=== PATIENT | female | born 1970 | race Caucasian/White ===

== ENCOUNTER 2017-04-19 02:17 | Inpatient (IN) | payer OTHER, SELFPAY ==
[2017-04-19 02:41] LABS: #Basophils 0.1 thou/uL (0.0-0.2); #Eosinphils 0.5 thou/uL (0.0-0.7); #Lymphocytes 1.7 thou/uL (1.20-3.40); #Monocytes 0.9 thou/uL (0.11-0.59); #Neutrophils 8.8 thou/uL (1.40-6.50); %Basophils 0.5 % (0.0-1.0); %Eosinophils 4.5 % (0.0-10.0); %Lymphocytes 14.5 % (21.0-51.0); %Monocytes 7.7 % (0.0-10.0); %Neutrophils 72.8 % (42.0-75.0); Hemoglobin 11.6 g/dL (12.0-16.0); Mean Corpuscular HGB CONC 32.7 g/dL (32.0-36.0); Mean Corpuscular Hemoglobin 30.1 pg (27.0-31.0); Mean Corpuscular Volume 92.1 fl (81.0-99.0); Mean Platelet Volume 7.2 fL (7.4-10.4); Platelet Count 349 thou/uL (130-400); RBC Distribution Width 12.4 % (11.5-14.5); Red Blood Cell (RBC) Count 3.87 mill/uL (4.20-5.40)
[2017-04-19 03:17] LABS: Bilirubin Negative (Negative); Blood, Urine Negative (Negative); Clarity CLEAR (Clear); Glucose, Urine (Dipstick) Negative (Negative); Leukocyte Negative (Negative); Nitrite Negative (Negative); Protein, Urine (Dipstick) Negative (Neg-Trace); Urobilinogen 0.2 mg/dL (0.2-1.0); pH, Urine 6.5 (5.0-9.0)
[2017-04-19 03:25] LABS: ALT (SGPT) 16 U/L (8-55); AST (SGOT) 15 U/L (5-34); Albumin 4.3 g/dL (3.5-5.0); Alkaline Phosphatase 70 U/L (40-150); Anion Gap 11 mmol/L (10-20); BUN (Urea Nitrogen) 11 mg/dL (7.0-18.7); Bilirubin, Total 0.8 mg/dL (0.2-1.2); Calc. Creatinine Clearance 0 mL/min (70-130); Calcium 9.7 mg/dL (7.8-10.44); Carbon Dioxide 28 mmol/L (22-29); Chloride 103 mmol/L (98-107); Estimated GFR-MDRD 76; Globulin 2.7 g/dL (2.4-3.5); Glucose 109 mg/dL (70-105); Potassium 4.2 mmol/L (3.5-5.1); Sodium 138 mmol/L (136-145)
[2017-04-19 03:30] LABS: Pregnancy Test - Urine (BHCG) Negative (Negative); Pregu Control Background? CLEAR/WHITE (CLR/WHITE); Pregu Control Bar Appear? YES (CONTROL BAR)
[2017-04-19] MEDS ORDERED: Ondansetron HCl/PF 4 MG/2 ML Vial ONE ×2 (03:35→15:55)
[2017-04-19] MEDS ORDERED: Piperacillin/Tazobactam 3.375 GM in Sodium Chloride 0.9% 100 ML IVPB SCH ×2 (04:15→11:00)
[2017-04-19] MEDS ORDERED: Ondansetron HCl/PF 4 MG/2 ML Vial IVP PRN ×2 (05:19→09:22)
[2017-04-19] MEDS ORDERED: Ondansetron ODT 4 MG TAB SL PRN (05:19)
[2017-04-19] MEDS ORDERED: Dextrose 5 % And 0.9 % NaCl 1,000 ML IV SCH (05:30)
[2017-04-19] MEDS ORDERED: Bupivacaine 0.25% HCL 30 ML VIAL ONE ×2 (06:46→06:48)
[2017-04-19] MEDS ORDERED: Bupivacaine PF 0.5% 30 ML VIAL ONE ×2 (06:46→06:48)
[2017-04-19] MEDS ORDERED: Lidocaine 2% w/Epinephrine 1:200K 20 ML VIAL ONE (06:52)
[2017-04-19] MEDS ORDERED: HYDROmorphone 0.5 MG/0.5 ML SYRINGE ONE (06:56)
[2017-04-19] MEDS ORDERED: Fentanyl 100 MCG/2 ML VIAL ONE (06:56)
[2017-04-19] MEDS ORDERED: Ketorolac Tromethamine 30 MG/ML VIAL ONE (07:21)
[2017-04-19] MEDS ORDERED: Scopolamine 1.5 mg/72 hour Patch ONE (07:21)
--- NOTE | 2017-04-19 07:59 | HP ---
HISTORY OF PRESENT ILLNESS: A 47-year-old female, from [place], presents with a 1-month to 6- week intermittent abdominal pain episodes. This is initially in her right lower quadrant and at in h er central abdomen. She presents to the emergency room, as it became more severe. Her white count i s 12 and hemoglobin 11.6. Comprehensive metabolic profile normal. Lipase 220. She underwent a CAT scan of the abdomen and pelvis revealing a normal appendix, Meckel's diverticulitis findings, and a q uestionable cervical mass 7.8 x 4.2 cm. She is followed by Dr. Dickson Jones and up-to-date on her Pap smears having had one last year. She had an upper and lower endoscopy last year for peptic ulcer dis ease and been on PPIs. Gallbladder is normal. The patient has had a cough with some interscapular p ain, episodically possibly related to her cough. Of note is that she did have an abdominal ultrasoun d 02/21/2016 revealing normal gallbladder with normal bile duct and negative sonographic Mccarty's. S he was having epigastric pain at that time. PAST SURGICAL HISTORY: 02/22/2016, Dr. Faulkner performed EGD noting erosive gastritis, normal esophagog astroduodenoscopy otherwise. PPIs recommended. 03/22/2016, colonoscopy, Dr. Faulkner, internal hemorrho ids, normal colonoscopy otherwise to the terminal ileum. 07/31/2014, Pap smear negative, bilateral t ubal ligation. ALLERGIES: None. TOBACCO: None. ALCOHOL: Rarely. MEDICATIONS: Ambien 10 mg daily, Zoloft 50 mg a day, propranolol at bedtime 80 mg. PAST MEDICAL HISTORY: Migraines and mild depression. The patient is followed by Dr. Jones from a [employer] standpoint and reports she is up-to-date on her visits. REVIEW OF SYSTEMS: Ten-point noncontributory. PHYSICAL EXAMINATION: VITAL SIGNS: 65 kilograms, 98.1, 69, 14, 99, 118/68. HEAD, EYES, EARS, NOSE, AND THROAT: Unremarkable. LUNGS: Clear to auscultation. CARDIAC: Regular rate and rhythm without murmur, rub, or gallop. ABDOMEN: Soft. Mild tenderness, central abdomen, umbilical area, mild guarding, no rebound. EXTREMITIES: Unremarkable. ASSESSMENT AND PLAN: 1. Abdominal pain. Radiological findings suggest Meckel's diverticulitis. We would recommend diagn ostic laparoscopy, possible mini laparotomy, Meckel's diverticulectomy possible segmental small bowel resection as indicated. Risk of infection, bleeding, reoperation, anastomotic leakage explained and discussed 2. Possible cervical mass. I have discussed with patient and Dr. Jones. Dr. Jones will be in to exam ine her under anesthesia, and we will look laparoscopically into her pelvis during the operation. La st Pap smear 2014, unremarkable. 3. Migraines. 4. Negative ultrasound gallbladder, 02/2016.
[2017-04-19] MEDS ORDERED: Promethazine HCl 25 MG/ML VIAL IM PRN (08:41)
[2017-04-19] MEDS ORDERED: Morphine Sulfate 2 MG/ML SYRINGE SLOW IVP PRN (08:41)
[2017-04-19] MEDS ORDERED: Meperidine HCl/PF 25 MG/ML VIAL SLOW IVP PRN (08:41)
[2017-04-19] MEDS ORDERED: Promethazine HCl 25 MG/ML VIAL SLOW IVP PRN (08:41)
[2017-04-19] MEDS ORDERED: traMADol HCl 50 MG TAB PO PRN (09:22)
[2017-04-19] MEDS ORDERED: Acetaminophen 500 MG TAB PO PRN (09:22)
[2017-04-19] MEDS ORDERED: Ondansetron ORAL SOLN. 4 MG/5 ML UDCUP PO PRN ×2 (09:22)
[2017-04-19] MEDS ORDERED: Ibuprofen 600 MG TAB PO PRN (09:22)
[2017-04-19] MEDS ORDERED: Ondansetron ODT 8 MG TAB SL PRN (09:22)
[2017-04-19] MEDS ORDERED: Ondansetron ODT 4 MG TAB PO PRN (09:22)
[2017-04-19] MEDS ORDERED: Ondansetron ODT 8 MG TAB PO PRN (09:22)
--- NOTE | 2017-04-19 10:16 | OP ---
DATE OF OPERATION: 04/19/2017 PREOPERATIVE DIAGNOSIS: Meckel's diverticulitis, CT scan suggested a cervical mass. POSTOPERATIVE DIAGNOSIS: Meckel's diverticulitis, normal appendix, normal cervix, uterus, small fibr oids and small cystic mass salpinx left from tubal ligation. PROCEDURE: Laparoscopic Meckel's diverticulectomy, laparoscopic evaluation of the pelvis. Dr. Dickson Jones is in the room to do a pelvic exam under anesthesia and view laparoscopically noting b enign pelvic findings. SURGEON: Dr. Frank Sifuentes ANESTHESIA: General. Local 0.5% Marcaine, 30 mL, mixed with 1% Xylocaine with epinephrine, 30 mL, t otal volume mixture used. PROCEDURE: The patient was taken to the operating room where under general anesthesia, Thayer cathete r placed at the beginning of the procedure and removed at the end. Abdomen prepared with ChloraPrep, draped in routine fashion. Local anesthetic infiltrated into skin and subcutaneous tissue about the operative site. Infraumbilical incision made and pneumoperitoneum to 15 mmHg obtained with the Tabitha ss needle, replacing it with a 5 port and laparoscope inserted. Left lateral subcostal and left lowe r quadrant incision made and under laparoscopic visualization and 5 ports placed. Left lateral mid a bdominal incision made and a 12 port placed. Meckel's diverticulitis noted. Pelvis evaluated by anirudh pham and Dr. Jones. Appendix was noted to be normal. The uterus had a small fibroid and some changes related to her prior tubal ligation, but there was no cervical mass. Appendix noted to be normal. M isai's diverticulum noted in the terminal ileum, it was inflamed and firm on the tip. Mesentery dis sected free, it was mobilized using the LigaSure. Good hemostasis noted. The Meckel's diverticulum had a soft base enabling stapled removal. A white load stapler inserted and transverse staple line f ired resecting the Meckel's diverticulum. Meckel's diverticulum placed in the Endobag and removed. 12 mm port site fascia approximated with GraNee needle 0 Vicryl [id number] suture. A laparoscop ic careful evaluation of the stapled small bowel area from removing Meckel's diverticulum was inspect ed. Good hemostasis noted. Staple line was intact. Area irrigated, irrigant evacuated, pelvis evac uated, irrigant and pneumoperitoneum evacuated and all instruments removed and all skin incisions jeimy roximated with interrupted subdermal 4-0 Monocryl and DermaGlue applied.
--- NOTE | 2017-04-19 10:18 | CT ---
PRELIMINARY REPORT/[facility]/EMERGENCY AFTER HOURS PROCEDURE: EXAM: CT Abdomen and Pelvis With Intravenous Contrast CLINICAL HISTORY: 47 years old, female; Right lower quadrant (rlq) abdominal pain radiating to rest of abdomen - onset 1400 this evening. Nausea. Denies fever / vomiting / diarrhea / dysuria / urinary complaints. TECHNIQUE: Axial computed tomography images of the abdomen and pelvis with intravenous contrast. Coronal reformatted images were created and reviewed. CONTRAST: 94 mL of ISOVUE 370 administered intravenously. COMPARISON: No relevant prior studies available. FINDINGS: Lower thorax: No acute findings. ABDOMEN: Liver: Unremarkable. No mass. Gallbladder and bile ducts: Unremarkable. No calcified stones. No ductal dilation. Pancreas: Unremarkable. No mass. No ductal dilation. Spleen: Unremarkable. No splenomegaly. Adrenals: Unremarkable. No mass. Kidneys and ureters: Unremarkable. No solid mass. No hydronephrosis. Stomach and bowel: On coronal images 45-60, likely Meckel diverticulum extending from the distal ileu m with adjacent inflammatory stranding. No obstruction. No mucosal thickening. Appendix: Normal appendix. PELVIS: Bladder: Unremarkable. No mass. Reproductive: Small ovarian cysts. Normal uterus. ABDOMEN and PELVIS: Intraperitoneal space: Unremarkable. No free air. No significant fluid collection. Bones/joints: Enlarged cervical region / possible cervical mass measuring approximately 7.8 x 4.2 cm. Clinical correlation is important. No acute fracture. No dislocation. Soft tissues: Unremarkable. Vasculature: Unremarkable. No abdominal aortic aneurysm. Lymph nodes: Unremarkable. No enlarged lymph nodes. IMPRESSION: 1. Normal appendix. 2. MECKEL DIVERTICULITIS: On coronal images 45-60, likely Meckel diverticulum extending from the dist al ileum with adjacent inflammatory stranding. 3. Enlarged cervical region / possible cervical mass measuring approximately 7.8 x 4.2 cm. Clinical c orrelation is important. 4. Small ovarian cysts. Thank you for allowing us to participate in the care of your patient. Dictated and Authenticated by: Rakesh Oliver MD 04/19/2017 3:38 AM Central Time ([place] & [place]) FINAL REPORT EMERGENCY AFTER HOURS ABDOMEN AND PELVIC CT SCAN WITH IV CONTRAST: Date: 04/19/17 Time: 0309 hours FINDINGS: There is evidence for a Meckel's diverticulum with surrounding fat stranding, evidence for Meckel's d iverticulitis. Normal appearing appendix. Small hiatal hernia. Area of somewhat dystrophic appearing calcifications in the region of the head of the pancreas with some minimal 0.9 x 1.0 cm associated lo w attenuation, nonspecific, possibly related to some chronic pancreatitis and small pseudocyst. Furth er evaluation with a follow-up CT scan in 6-12 months is recommended in this regard. There is an appr oximately 1.5 cm diameter exophytic solid mass off the posterior aspect of the uterus, evidence for a n intrauterine fibroid, with some nodularity of attenuation within the uterus, possibly additional sm all fibroids. Enlargement of the region of the cervix, the possibility of an associated cervical mass is not excluded. Report in slight disagreement with preliminary report given by [facility]. The calcific and cystic change i n the region of the head of the pancreas, as well as the small uterine fibroid were not mentioned on the [facility] report, neither of these appear to be related to any acute findings. CODE T. POS: CURTIS
[2017-04-19] MEDS: traMADol HCl 50 MG TAB PO PRN ×2 (12:30→19:58)
[2017-04-19] MEDS ORDERED: ISOVUE-370 76%-LOCM 1 ML ONE (14:21)
[2017-04-19 14:26] VITALS: BMI 24.4
[2017-04-19] MEDS ORDERED: Lidocaine 1% PF 5 ML VIAL ONE (15:55)
[2017-04-19] MEDS ORDERED: PHENYLEPHRINE-NS 100 MCG/ML 10 ML SYRINGE ONE (15:55)
[2017-04-19] MEDS ORDERED: ePHEDrine/0.9% NaCl/PF SYRINGE 50 mg/10 ml ONE (15:55)
[2017-04-19] MEDS ORDERED: Dexamethasone 20 MG/5 ML VIAL ONE (15:55)
[2017-04-19] MEDS ORDERED: Glycopyrrolate 0.2 MG/ML 5 ML SYRINGE ONE (15:55)
[2017-04-19] MEDS ORDERED: PROPOFOL 200 MG/20 ML VIAL ONE (15:55)
[2017-04-19] MEDS ORDERED: Propranolol HCl LA 80 MG CAP PO SCH (21:00)
[2017-04-19] MEDS ORDERED: Zolpidem Tartrate 5 MG TAB PO SCH (21:00)
--- NOTE | 2017-04-20 02:28 | OP ---
INTRAOPERATIVE CONSULTATION AND EXAM UNDER ANESTHESIA FOR OR/ER PATIENT OF DR. CATHY SIFUENTES DATE: 04/19/2017 Basically this is a 47-year-old white female who is known to me and last seen by me in for her annual well woman exam and I was called in toolroom checker of 04/19/[address] Sifuentes to com e and help evaluate this patient due to the fact that in the process of finding a Meckel's diverticul um that was possibly infected and/or bleeding, a CT scan revealed a possible 7 x 4 cm cervical mass " that is possible" for the cervical mass. She had no gynecologic complaints and her last examination 03/30/2017 showed her to have a normal pelvic exam and her past gynecologic history was unremarkable with the exception of her having had a LEEP for cervical abnormalities many years ago and lumpectomy from the left breast which was benign and previous tubal ligation. She was still having menses when she was last seen and she had a chronic history of peptic ulcer disease and actually had a blood lyons sfusion for that. In addition, she took Inderal for migraines and sertraline for anxiety. I saw her briefly right before she went to sleep. She says she still had no gynecologic complaints. No abnormal bleeding or pain or painful intercourse. Hospital consultation continues as follows. T he exam under anesthesia was unremarkable with a normal appearing cervix on speculum exam. Bimanual exam showed a normal size uterus that was mobile with no adnexal masses or tenderness. Intraoperatively laparoscopy was performed by Dr. Sifuentes. Video photographs were taken. I do not kn ow if they developed or not, but she had a normal appearing uterus with very small fibroids on the steinberg bserosal area that were less than 2 cm in diameter. Normal ovaries bilaterally and a fairly large hy datid cyst of Morgagni on her left fallopian tube that was probably 4 cm in length but certainly no b igger than 1.5 cm to 2 cm in diameter and certainly there was no mass on her cervix both from the vag inal side or from the abdominal side. My overall impression is that this woman has no evidence of an y serious gynecologic pathology. Plan was to have Dr. Sifuentes proceed with taking care of Meckel's di verticulum that appear infected. See his operative note for further details. Ultimately, I will wan t to see the patient back for her annual gynecologic exam and further review this finding and plans f or the future.
[2017-04-20] MEDS: traMADol HCl 50 MG TAB PO PRN ×2 (07:06→14:14)
[2017-04-20 11:54] VITALS: TEMP 98.1
[2017-04-20 12:12] VITALS: BP 98/56
--- NOTE | 2017-04-20 13:12 | PRG ---
DATE OF SERVICE: 04/20/2017 SUBJECTIVE: She is doing well today. She is tolerating her diet, although not very hungry. OBJECTIVE: VITAL SIGNS: Stable. Afebrile. LUNGS: Clear to auscultation. CARDIAC: Regular rate and rhythm without murmur or gallop. ABDOMEN: Soft, nontender. Surgical wounds look good. ASSESSMENT: Doing well post-laparoscopic Meckel's diverticulectomy. PLAN: Discharge home today. Follow up in my office in 2-3 weeks.
--- NOTE | 2017-04-20 18:01 | DIS ---
DATE OF ADMISSION: 04/19/2017 DATE OF DISCHARGE: 04/20/2017 DISCHARGE DIAGNOSES: Acute Meckel's diverticulitis superimposed on chronic. PROCEDURES: Laparoscopic Meckel's diverticulectomy. Surgeon, Dr. Sifuentes. HISTORY: A 47-year-old female with a history of abdominal pain, in fact about two years ago, she pre sented with abdominal pain. Ultrasound of gallbladder was normal. Upper and lower endoscopy was nor mal. She continued to have intermittent episodes and that became more severe presented to emergency room on this occasion CAT scan revealed changes consistent with Meckel's diverticulitis. She has not had a prior CAT scan. HOSPITAL COURSE: The patient underwent the above procedure, observed overnight and discharged home w ith Tylenol, Ultram, and ibuprofen p.r.n. pain. Follow up in my office in 2-3 weeks. Diet and activ ity as tolerated. Note, patient also on CAT scan suggested to have a possible cervical mass. Dr. Cooley is into the operating room and her uterus had fibroids, small, there was a cyst on her left ovary from a previous tubal ligation, but there is no pelvic abnormalities otherwise. Exam under anesthesi a by Dr. Jones. Pelvic exam was normal.
== END 2017-04-20 15:08 | disposition home or self-care (01) | DRG 348 ==
LOC: ERS 02:17 → SURG A 04:06
PROVIDERS: ADMIT Specialist; ATTEND Specialist
PROC: 0DBB4ZZ Excision of Ileum, Percutaneous Endoscopic Approach (ICD-10-PCS; principal; 2017-04-19)
DX: Q43.0 Meckel's diverticulum (displaced) (hypertrophic) (principal); B67.99 Other echinococcosis; D25.9 Leiomyoma of uterus, unspecified; N83.202 Unspecified ovarian cyst, left side; Z98.51 Tubal ligation status; G43.909 Migraine, unspecified, not intractable, without status migrainosus; F41.9 Anxiety disorder, unspecified; F32.9 Major depressive disorder, single episode, unspecified; Q50.5 Embryonic cyst of broad ligament
CPT/HCPCS: 36415; 74177; 80053; 81003; 81025; 83690; 85025; 88304; 96365; 96375; J0131; J1100; J1170; J1885; J2001; J2270; J2405; J2543; J2704; J3010; J7050; S0020